=== PATIENT | female | born 2000 | race Caucasian/White ===

== ENCOUNTER 2020-09-01 10:32 | Day surgery (SDC) | payer OTHER ==
[2020-08-26 15:01] VITALS: BMI 20.9
[2020-09-01] MEDS ORDERED: PROPOFOL 20 ML ONE ×2 (11:00)
[2020-09-01 12:03] VITALS: TEMP 98.2
[2020-09-01 13:24] VITALS: BP 122/72; PULSE 66
--- NOTE | 2020-09-07 11:38 | PATH ---
Surgical Pathology Report Patient Name: JB SAM [facility]. Rec. #: [id number] /Age/Gender: 2000 (Age: 20) / F Account: [id number] Location: [facility] Taken: 09/01/2020 Received: 09/01/2020 Reported: 09/07/2020 Physicians: Vandana Beltre M.D. Specimen(s) Received A: BIOPSY RIGHT COLON B: BIOPSY TRANVERSE COLON C: BIOPSY LEFT COLON Clinical History Blood in stool Postoperative diagnosis: Hemorrhoids Final Diagnosis A. RIGHT COLON, BIOPSY: COLONIC MUCOSA SHOWING BENIGN/REACTIVE LYMPHOID AGGREGATE. B. TRANSVERSE COLON, BIOPSY: COLONIC MUCOSA SHOWING BENIGN/REACTIVE LYMPHOID AGGREGATE. C. LEFT COLON, BIOPSY: COLONIC MUCOSA SHOWING BENIGN/REACTIVE LYMPHOID AGGREGATE. Electronically Signed Quyen Sotelo M.D. Gross Description A. Received in formalin, labeled "biopsy right colon" is a torres, irregular portion of soft tissue measuring 0.8 cm. in greatest dimension. The specimen is submitted in toto in one cassette. B. Received in formalin, labeled "biopsy transverse colon" is a torres, irregular portion of soft tissue measuring 1.0 cm. in greatest dimension. The specimen is submitted in toto in one cassette. C. Received in formalin, labeled "biopsy left colon" is a torres, irregular portion of soft tissue measuring 0.4 cm. in greatest dimension. The specimen is submitted in toto in one cassette. DL/09/02/2020 saudi09/02/2020
== END 2020-09-01 12:50 | disposition home or self-care (01) ==
LOC: FASU-ENDO 10:32
PROVIDERS: ATTEND Internal Medicine Gastroenterology
PROC: 0DBL8ZX Excision of Transverse Colon, Via Natural or Artificial Opening Endoscopic, Diagnostic (ICD-10-PCS; 2020-09-01)
PROC: 0DBM8ZX Excision of Descending Colon, Via Natural or Artificial Opening Endoscopic, Diagnostic (ICD-10-PCS; 2020-09-01)
PROC: 0DBK8ZX Excision of Ascending Colon, Via Natural or Artificial Opening Endoscopic, Diagnostic (ICD-10-PCS; principal; 2020-09-01 11:36)
DX: K92.1 Melena (principal); K52.89 Other specified noninfective gastroenteritis and colitis; K64.1 Second degree hemorrhoids
CPT/HCPCS: 84703; 88305-TC

== ENCOUNTER 2020-10-06 10:33 | Day surgery (SDC) | payer OTHER ==
[2020-10-05 10:00] VITALS: BMI 21.4
[2020-10-06] MEDS ORDERED: LIDOCAINE HCL/PF 2% SDV 5ML VIAL ONE (11:41)
[2020-10-06] MEDS ORDERED: PROPOFOL 20 ML ONE (11:42)
[2020-10-06 12:45] VITALS: PULSE 80; TEMP 97.8
[2020-10-06 12:49] VITALS: BP 121/71
== END 2020-10-06 13:25 | disposition home or self-care (01) ==
LOC: FASU-ENDO 10:33
PROVIDERS: ATTEND Internal Medicine Gastroenterology
PROC: 0DB78ZX Excision of Stomach, Pylorus, Via Natural or Artificial Opening Endoscopic, Diagnostic (ICD-10-PCS; 2020-10-06)
PROC: 0DB48ZX Excision of Esophagogastric Junction, Via Natural or Artificial Opening Endoscopic, Diagnostic (ICD-10-PCS; 2020-10-06)
PROC: 0DB98ZX Excision of Duodenum, Via Natural or Artificial Opening Endoscopic, Diagnostic (ICD-10-PCS; principal; 2020-10-06 11:43)
DX: K21.00 Gastro-esophageal reflux disease with esophagitis, without bleeding (principal); K29.50 Unspecified chronic gastritis without bleeding; Z87.19 Personal history of other diseases of the digestive system
CPT/HCPCS: 84703; 88305-TC; 88342-TC

== ENCOUNTER 2021-04-19 11:28 | Emergency (ER) | payer OTHER ==
[2021-04-19 11:46] VITALS: BMI 23.4
[2021-04-19] MEDS ORDERED: SODIUM CHLORIDE 0.9% 500 ML INFUS.BAG IV ONE (12:30)
[2021-04-19] MEDS ORDERED: ACETAMINOPHEN 1000 MG/100 ML VIAL (NON FORMULARY) IVPB ONE (12:30)
[2021-04-19] MEDS ORDERED: PROCHLORPERAZINE INJECTION 10 MG/2 ML VIAL IVPB ONE (12:32)
[2021-04-19] MEDS ORDERED: ACETAMINOPHEN INJECTION 100 ML IVPB ONE (12:38)
[2021-04-19] MEDS ORDERED: PT OWN MED DRAWER 7, Y5N ONE (12:52)
[2021-04-19 13:21] LABS: HEMATOCRIT 39.7 % (32.4-45.2); HEMOGLOBIN 13.6 GM/dL (10.7-15.3); MCH 28.3 pg (25.7-33.7); MCHC 34.3 g/dl (32.0-36.0); MEAN CELL VOLUME 82.7 fl (80-96); MEAN PLT VOLUME 9.5 fl (7.5-11.1); PLATELET COUNT 219 K/MM3 (134-434); RDW 15.1 % (11.6-15.6); WHITE BLOOD COUNT 7.4 K/mm3 (4.0-10.0)
[2021-04-19 13:29] LABS: INR 1.15 (0.83-1.09); PROTHROMBIN TIME (PATIENT) 13.8 SEC (9.7-13.0)
[2021-04-19 13:30] LABS: CHLORIDE 105 mmol/L (98-107); SODIUM 134 mmol/L (136-145)
[2021-04-19 13:32] LABS: ACTIVATED PTT 31.5 SECONDS (25.2-36.5); CALCIUM 9.4 mg/dL (8.5-10.1)
[2021-04-19 13:33] LABS: ALBUMIN 3.9 g/dl (3.4-5.0); BLOOD UREA NITROGEN 11.9 mg/dL (7-18); CO2 28 mmol/L (21-32); GLUCOSE,RANDOM 81 mg/dL (74-106); MAGNESIUM 2.4 mg/dL (1.8-2.4)
[2021-04-19 13:36] LABS: CREATININE 0.8 mg/dL (0.55-1.3); SGOT/AST 95 U/L (15-37)
[2021-04-19 13:37] LABS: BILIRUBIN,TOTAL 0.7 mg/dL (0.2-1); TOT PROT 8.4 g/dl (6.4-8.2)
[2021-04-19 13:39] LABS: ALK PHOS 98 U/L (45-117)
[2021-04-19 14:02] LABS: ANION GAP 1 MMOL/L (8-16); SGPT/ALT 31 U/L (13-61)
[2021-04-19] MEDS ORDERED: DEXAMETHASONE SOD PHOSPHATE 10 MG/1 ML VIAL IVPUSH ONE (14:50)
[2021-04-19] MEDS ORDERED: MAGNESIUM SULF 50% (8.12 MEQ/2 ML-1 GM VIAL) IVPB ONE (14:50)
[2021-04-19] MEDS ORDERED: MAGNESIUM 1GM/D5W - 1 GM/100 ML IVPB IVPB ONE (15:04)
[2021-04-19] MEDS ORDERED: DEXAMETHASONE SOD PHOSPHATE 10 MG/1 ML VIAL ONE (15:04)
[2021-04-19 16:07] LABS: CALCIUM 8.3 mg/dL (8.5-10.1)
[2021-04-19 16:11] LABS: CREATININE 0.6 mg/dL (0.55-1.3)
[2021-04-19 17:52] VITALS: PULSE 80
[2021-04-19 18:21] VITALS: BP 96/44; TEMP 98
== END 2021-04-19 18:21 | disposition short-term general hospital (02) ==
LOC: JER 11:28
PROC: 3E0333Z Introduction of Anti-inflammatory into Peripheral Vein, Percutaneous Approach (ICD-10-PCS; principal; 2021-04-19)
PROC: 3E033GC Introduction of Other Therapeutic Substance into Peripheral Vein, Percutaneous Approach (ICD-10-PCS; 2021-04-19)
PROC: 3E033GC Introduction of Other Therapeutic Substance into Peripheral Vein, Percutaneous Approach (ICD-10-PCS; 2021-04-19)
PROC: 3E033GC Introduction of Other Therapeutic Substance into Peripheral Vein, Percutaneous Approach (ICD-10-PCS; 2021-04-19)
PROC: 3E033GC Introduction of Other Therapeutic Substance into Peripheral Vein, Percutaneous Approach (ICD-10-PCS; 2021-04-19)
DX: Q28.2 Arteriovenous malformation of cerebral vessels (principal); R51.9 Headache, unspecified
CPT/HCPCS: 36415; 70450-TC; 70496-TC; 70498-TC; 80048; 80053; 83735; 84703; 85027; 85610; 85730; 99285-25; J0131; J1100